=== PATIENT | male | born 1985 | race Hispanic/Latino ===

== ENCOUNTER 2022-03-16 16:08 | Emergency (ER) | payer BC ==
[2022-03-16] MEDS ORDERED: Acetaminophen 325 MG/10.15 ML UDCUP ONE (17:35)
[2022-03-16] MEDS ORDERED: Boostrix 0.5 ML (Tdap) VIAL (>/=7 yrs of age) ONE (17:35)
[2022-03-16] MEDS ORDERED: Lidocaine 1% PF 5 ML VIAL ONE (17:36)
== END 2022-03-16 18:43 | disposition home or self-care (01) ==
LOC: ERS 16:08
DX: S61.211A Laceration without foreign body of left index finger without damage to nail, initial encounter (principal); W26.0XXA Contact with knife, initial encounter; Z23 Encounter for immunization
CPT/HCPCS: 12001; 90471; 90715